=== PATIENT | female | born 2000 | race American Indian/Alaskan Native ===

== ENCOUNTER 2022-01-14 08:05 | Inpatient (IN) | payer MEDICAID, OTHER ==
[~2022-01-14] VITALS: Ht 154.9 cm; Wt 54.4 kg
[2022-01-14] MEDS ORDERED: LACTATED RINGERS 1,000 ML IV SCH (09:00)
[2022-01-14] MEDS ORDERED: BUTORPHANOL TARTRATE 2 MG/ML VIAL IV PRN (09:00)
[2022-01-14] MEDS ORDERED: OXYTOCIN 30 UNITS/500ML NS PMX 500 ML IV SCH (09:00)
[2022-01-14] MEDS ORDERED: METHYLERGONOVINE MALEATE 0.2 MG/ML IM PRN (09:00)
[2022-01-14] MEDS ORDERED: LIDOCAINE HCL 1% 20ML VIAL (Pyxis) INJ INFIL SCH (09:00)
[2022-01-14] MEDS ORDERED: NALOXONE HCL 0.4 MG/ML 1ML VIAL IM PRN (09:00)
[2022-01-14] MEDS ORDERED: CARBOPROST TROMETHAMINE 250 MCG/ML AMPUL IM PRN (09:00)
[2022-01-14 09:50] LABS: CLARITY URINE CLEAR (CLEAR); COLOR URINE YELLOW (YELLOW); KETONES URINE NEGATIVE (NEGATIVE); LEUKOCYTE ESTERASE URINE 3+ (NEGATIVE); NITRITE URINE NEGATIVE (NEGATIVE); OCCULT BLOOD URINE NEGATIVE (NEGATIVE); PH URINE 6.5 (4.5-8.0); PROTEIN URINE NEGATIVE (NEGATIVE); SPECIFIC GRAVITY URINE 1.016 (1.005-1.030)
[2022-01-14 09:57] LABS: INR 0.9; PARTIAL THROMBOPLASTIN TIME 25.6 sec (23.4-31.0); PROTHROMBIN TIME 9.8 sec (9.6-11.0)
[2022-01-14 10:00] LABS: BASOPHILS % 0.4 % (0.0-2.0); EOSINOPHILS % 1.4 % (0.0-5.0); HEMATOCRIT. 33.8 % (36.0-48.0); HEMOGLOBIN. 10.9 g/dL (12.0-16.0); LYMPHOCYTES % 24.4 % (20.0-50.0); MEAN CORPUSCULAR HEMOGLOBIN 25.3 pg (28.0-32.0); MEAN CORPUSCULAR VOLUME 78.4 fL (81.0-99.0); MEAN PLATELET VOLUME 8.1 fl (7.4-10.4); MONOCYTES % 5.5 % (2.0-8.0); NEUTROPHILS % 68.3 % (40.0-76.0); PLATELET 260 x1000/uL (130-400); RED BLOOD CELL COUNT 4.31 mill/uL (4.2-5.4); RED CELL DISTRIBUTION WIDTH 16.2 % (11.6-14.6)
[2022-01-14] MEDS ORDERED: RHO(D) IMMUNE GLOBULIN 300 MCG/SYR IM PRN (10:15)
[2022-01-14] MEDS ORDERED: BENZOCAINE/LANOLIN/ALOE VERA SPRAY TOP PRN (10:15)
[2022-01-14] MEDS ORDERED: IBUPROFEN 400MG TABLET PO PRN (10:15)
[2022-01-14 10:22] LABS: *AMPHETAMINES SCREEN URINE NEGATIVE (NEGATIVE); *BARBITURATES SCREEN URINE NEGATIVE (NEGATIVE); *BENZODIAZEPINES SCREEN URINE NEGATIVE (NEGATIVE); *COCAINE SCREEN URINE NEGATIVE (NEGATIVE); CANNABINOID URINE SCREEN NEGATIVE (NEGATIVE); METHADONE URINE SCREEN NEGATIVE (NEGATIVE); OPIATES URINE SCREEN NEGATIVE (NEGATIVE); PHENCYCLIDINE URINE SCREEN NEGATIVE (NEGATIVE)
[2022-01-14 11:45] VITALS: BP 110/62
[2022-01-14 15:29] LABS: HEPATITIS B SURFACE ANTIGEN NEGATIVE
[2022-01-14 16:00] VITALS: BP 112/74
[2022-01-14 20:00] VITALS: BP 114/67
[2022-01-14] MEDS ORDERED: TETANUS, DIPHTHERIA, PERTUSSIS VAC/PF 0.5ML (>10YR OLD) IM ONE (21:00)
[2022-01-14] MEDS ORDERED: MEASLES,MUMPS&RUBELLA VACCINE 1 VIAL SUBCUT ONE (21:00)
[2022-01-14] MEDS: IBUPROFEN 800MG TABLET PO PRN (21:18)
[2022-01-15] MEDS: IBUPROFEN 800MG TABLET PO PRN (03:22)
[2022-01-15 04:00] VITALS: BP 110/66
[2022-01-15 07:20] LABS: BASOPHILS % 0.3 % (0.0-2.0); EOSINOPHILS % 1.4 % (0.0-5.0); HEMATOCRIT. 25.5 % (36.0-48.0); HEMOGLOBIN. 8.3 g/dL (12.0-16.0); LYMPHOCYTES % 24.6 % (20.0-50.0); MEAN CORPUSCULAR HEMOGLOBIN 25.2 pg (28.0-32.0); MEAN CORPUSCULAR VOLUME 77.8 fL (81.0-99.0); MEAN PLATELET VOLUME 8.1 fl (7.4-10.4); MONOCYTES % 5.5 % (2.0-8.0); NEUTROPHILS % 68.2 % (40.0-76.0); PLATELET 205 x1000/uL (130-400); RED BLOOD CELL COUNT 3.28 mill/uL (4.2-5.4)
[2022-01-15 07:40] VITALS: BP 115/69
[2022-01-15] MEDS: PRENATAL VIT/FE FUMARATE/FA TABLET PO SCH (10:47)
[2022-01-15] MEDS: FERROUS SULFATE 325MG TABLET PO SCH (10:47)
[2022-01-15 16:30] VITALS: BP 117/68
[2022-01-15 20:00] VITALS: BP 103/56
[2022-01-16 05:22] VITALS: BP 103/59
[2022-01-16 08:25] VITALS: BP 127/76
[2022-01-16] MEDS: PRENATAL VIT/FE FUMARATE/FA TABLET PO SCH (08:53)
[2022-01-16] MEDS: IBUPROFEN 800MG TABLET PO PRN (08:53)
[2022-01-16] MEDS: FERROUS SULFATE 325MG TABLET PO SCH (08:53)
== END 2022-01-16 11:40 | disposition home or self-care (01) | DRG 560 ==
LOC: 8 EST LDRP 08:05 → OBSVTOIN 08:06 → 8EST 12:21
PROVIDERS: ADMIT Obstetrics & Gynecology; ATTEND Obstetrics & Gynecology
PROC: 10E0XZZ Delivery of Products of Conception, External Approach (ICD-10-PCS; principal; 2022-01-14)
PROC: 0KQM0ZZ Repair Perineum Muscle, Open Approach (ICD-10-PCS; 2022-01-14)
DX: O48.0 Post-term pregnancy (principal); Z37.0 Single live birth; O70.1 Second degree perineal laceration during delivery; Z20.822 Contact with and (suspected) exposure to COVID-19; O77.0 Labor and delivery complicated by meconium in amniotic fluid; Z3A.40 40 weeks gestation of pregnancy; Z82.49 Family history of ischemic heart disease and other diseases of the circulatory system
CPT/HCPCS: 36415; 80305; 81003; 85025; 86592; 86703; 86762; 86850; 86900; 87340; 87426; 90707; 90715; 99281; G0378; J3490; J7120; J2590